=== PATIENT | female | born 1960 | race Caucasian/White ===

== ENCOUNTER 2022-02-11 18:53 | Emergency (ER) | payer SELFPAY ==
[~2022-02-11] VITALS: Ht 154.9 cm; Wt 65.5 kg
[2022-02-11 19:12] VITALS: BP 118/67
== END 2022-02-11 20:07 | disposition home or self-care (01) ==
LOC: ER 18:54
DX: S63.501A Unspecified sprain of right wrist, initial encounter (principal); R20.0 Anesthesia of skin; Z87.81 Personal history of (healed) traumatic fracture; Y35.892A Legal intervention involving other specified means, bystander injured, initial encounter; Y93.89 Activity, other specified; Y92.89 Other specified places as the place of occurrence of the external cause; Y99.8 Other external cause status
CPT/HCPCS: 29125; 73110; 99284; L3908